=== PATIENT | female | born 2000 | race Hispanic/Latino ===

== ENCOUNTER 2022-12-12 17:52 | Emergency (ER) | payer BC, OTHER ==
[~2022-12-12] VITALS: Ht 165.1 cm; Wt 56.2 kg
== END 2022-12-12 18:40 | disposition home or self-care (01) ==
LOC: FSED 18:01
DX: O26.852 Spotting complicating pregnancy, second trimester (principal); Z3A.16 16 weeks gestation of pregnancy
CPT/HCPCS: 99282